=== PATIENT | female | born 1985 | race Caucasian/White ===

== ENCOUNTER 2017-06-20 01:06 | Emergency (ER) | payer BC, MEDICAID ==
[2017-06-20] MEDS ORDERED: ACETAMINOPHEN 325 MG PO ONE (01:21)
[2017-06-20 01:24] VITALS: BP 124/54; PULSE 110; RESP 20; TEMP 99; O2SAT 96
[2017-06-20] MEDS ORDERED: ACETAMINOPHEN 325 MG ONE (01:35)
== END 2017-06-20 02:02 | disposition home or self-care (01) | DRG 90 ==
LOC: ED 01:06
DX: S06.0X0A Concussion without loss of consciousness, initial encounter (principal); Y04.0XXA Assault by unarmed brawl or fight, initial encounter
CPT/HCPCS: 70450; 99283